=== PATIENT | male | born 1985 | race Caucasian/White ===

== ENCOUNTER 2025-04-20 16:37 | Emergency (ER) | payer SELFPAY ==
--- NOTE | ~2025-04-20 | XR_ITS ---
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 Findings: No acute fracture or malalignment. No significant degenerative changes. Soft tissues unremarkable. Impression: No acute fracture or malalignment. Reviewed, dictated and finalized at location P. CARVING MACHINE OPERATOR Impression: No acute fracture or malalignment.
[2025-04-20 16:46] VITALS: BP 113/75; PULSE 78; RESP 16; TEMP 36.4; O2SAT 100
--- NOTE | 2025-04-20 16:51 | ED_ITS ---
HPI - Extremity Injury (Lower) General Chief Complaint: Extremity Injury, Lower Stated Complaint: Left paez area injury Time Seen by Provider: 04/20/25 17:09 Source: patient and RN notes reviewed Mode of arrival: ambulatory Limitations: no limitations History of Present Illness HPI Narrative: 39-year-old male presents with concern of for injury to the left leg. Reports he ran into a [employer] work. Reports painful and slightly swollen area with an abrasion. He denies decreased strength, sensation, range of motion in the leg or distal extremity. He cleaned it after he was injured. MD complaint: leg injury Related Data Home Medications ?Medication ?Instructions ?Recorded ?Confirmed ?Last Taken ?Type buprenorphine subcut 04/20/25 Unknown His tory Allergies Allergy/AdvReac Type Severity Reaction Status Date / Time No Known Allergies Allergy Verified 04/20/25 16:59 Review of Systems Review of Systems: CONSTITUTIONAL: Denies malaise, chills, sweats, or fever. SKIN: Denies rash or itching, redness, warmth. Reports abrasion to the anterior left lower leg MUSCULOSKELETAL: Reports left leg pain, swelling NEUROLOGIC: Denies numbness, weakness All systems reviewed & are unremarkable except as noted in HPI and below PMFSH Comments At time of signature, agree with nursing past medical, surgical, social and f amily history. There is no relevant family history pertinent to the presenting complaint Exam Narrative: GENERAL: Well-appearing, well-nourished, and in no acute distress. HEAD: Normocephalic, atraumatic. EYES: PERRLA, conjunctivae clear NECK: Supple. CHEST: Speaks in full sentences. No respiratory distress. HEART: Regular rate and rhythm. Normal and equal peripheral pulses. EXTREMITIES: Left lower extremity has grossly normal strength and sensation, grossly normal range of motion. Mild anterior mid lower leg without erythema, warmth, ecchymosis. Normal sensation with sensitivity to light touch and pain. Anterior left lower leg tenderness. No open wounds, no skin tenting, no devitalized tissue or atrophy, no trophic changes, no obvious deformity, alignment normal, nearby joints and structures intact. Distal pulses palpable and equal bilaterally, skin warm, dry, pink. Capillary refill less than 3 seconds. SKIN: Warm, dry, no rash. NEURO: Alert and oriented x3. PSYCH: Normal mood and affect Course Course Emergency Course: Patient is aware of diagnosis, understands and agrees to treatment plan. Anticipatory guidance given. Patient agrees to follow-up as directed and is aware of reasons to seek care at the emergency department. Portions of this record may have been created with voice recognition software Level of Care: [facility] Visit MDM Differential Diagnosis Differential Diagnosis: I evaluated this patient in the [facility]. History is obtained from patient who is an independent historian and physical exam was performed.? Available medical records were reviewed. ? Exam findings and relevant testing show no acute concerns or changes; patient is non-toxic appearing and is in no distress. ? Patients injury and/or pain is consistent with musculoskeletal etiology. No signs of neurological or vascular compromise on exam. Compartments and tissues are soft without signs of compartment syndrome. Pain is felt appropriate for further evaluation on an outpatient basis. Differential diagnosis and treatment plan were discussed with the patient. Patient agrees with discussion and after shared medical decision making agrees with plan of care. All questions were answered to the patient's satisfaction. Patient is appropriate for outpatient treatment and follow-up. Imaging Data My impression: Images reviewed, interpreted by radiologist, agree, see report. 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 Findings: No acute fracture or malalignment. No significant degenerative changes. Soft tissues unremarkable. Impression: No acute fracture or malalignment. Discharge Plan Discharge Clinical Impression: Contusion of left leg Patient Disposition: Home Condition: Stable Instructions: Contusion in Adults (ED) Additional Instructions: Avoid activities that cause pain until the pain subsides. Ice to the area 20-30 minutes 4-6 times a day Elevate above heart Elastic wrap as directed for comfort for the next 5-7 days Tylenol for lesser pain Ibuprofen regularly for the next 2-3 days for the inflammation Follow up with your primary care provider if the condition is not improving within 1 week. If the condition worsens with numbness, tingling, decrease sensation with weakness seek treatment in the emergency room immediately. Patient Language: [place] Prescriptions: No Action buprenorphine [Brixadi] subcut Follow-up/Referrals: PHYSICIAN,CHIPPER [Primary Care Provider, Internal Medicine] Time of Disposition: 17:18
--- OUTSIDE RECORDS SUMMARY | 2025-04-20 19:01 | XMS_ITS | Patient Health Record ---
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 Name Role Phone Jose Gutierrez Primary Care Provider Allergies No Known Allergies Reason For Referral No Information Medications Medication SIG (Take, Route, Frequency, Duration) Notes Start Date End Date Status Symbicort 160-4.5 MCG/ACT Aerosol Inhalation; Duration: 30 Days Not-Taking/PRN hydrOXYzine Pamoate 50 MG Capsule Oral; Duration: 8 Days Not-Taking/PRN busPIRone HCl 10 MG Tablet Oral; Duration: 30 Days Not-Taking/PRN Modafinil Active QUEtiapine Fumarate 50 MG Tablet Oral; Duration: 30 Days Not-Taking/PRN Pregabalin 100 MG Capsule TAKE 1 CAPSULE BY MOUTH TWICE A DAY Oral; Duration: 30 Days Not-Taking/PRN CeleXA 20 MG Tablet take 1 tablet (20MG) by oral route every day Oral ([facility]) 04/11/2011 Not-Taking/PRN Albuterol Sulfate HFA 108 (90 Base) MCG/ACT Aerosol Solution Inhalation; Duration: 30 Days Not-Taking/PRN Vistaril Active Advair Diskus 250-50 MCG/ACT Aerosol Powder Breath Activated Inhalation; Duration: 30 Days Not-Taking/PRN Buprenorphine HCl-Naloxone HCl 8-2 MG Tablet Sublingual 2 TABLETS BY SUBLINGUAL ROUTE DAILY. Sublingual; Duration: 15 Days Active traZODone HCl 50 MG Tablet Oral; Duration: 30 Days Not-Taking/PRN buPROPion HCl ER (XL) 300 MG Tablet Extended Release 24 Hour Oral; Duration: 90 Days Not-Taking/PRN lamoTRIgine 25 MG Tablet TAKE 1 TABLET BY MOUTH TWICE A DAY Oral; Duration: 15 Days Not-Taking/PRN Social History Tobacco Use: Social History Observation Description Date Details (start date - stop date) Current Smoker NA - NA Social History Tobacco Use: Social Info Question Answer Notes Tobacco Use/Smoking Are you a current smoker How often do you smoke cigarettes? every day How many cigarettes a day do you smoke? 5 or less How soon after you wake up do you smoke your first cigarette? within 5 minutes Are you interested in quitting? Ready to quit Additional Findings: Tobacco User Light cigarett e smoker ((1-9 cigs/day) Problems Problem Type SNOMED Code ICD Code Onset Dates Problem Status W/U Status Risk Notes Problem Polysubstance abuse (456214681) Polysubstance abuse (F19.10) 07/28/19 Active confirmed Problem Alcohol abuse (89665557) Alcohol abuse (F10.10) 07/28/19 Active confirmed Problem COPD - Chronic obstructive pulmonary disease (71660143) Chronic obstructive pulmonary disease, unspecified COPD type (J44.9) 07/28/19 Active confirmed Problem History of intravenous drug abuse (situation) (3662142958212479 3) IV drug abuse (F19.10) 07/28/19 Active confirmed Plan Of Treatment No Information Insurance Providers Payer Name Payer Address Payer Phone Subscriber Number Group Number Insured Name Patient Relationship to Insured Coverage Start Date Coverage End Date [address] [id number] Delmer Roman Self - patient is the insured [facility] [address] [place] [address] [id number] Delmer Roman Self - patient is the insured Medical (General) History Medical History History ICD Code Substance use disorder: Meth 07/18/23 Asthma Surgical History Surgery Date(Month/Year) pins and plates in right leg 2002
--- OUTSIDE RECORDS SUMMARY | 2025-04-20 19:01 | XMS_ITS | Patient Health Record ---
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 Role Phone Nicolas Zaidi Primary Care Provider Lilia ZAIDI Unavailable Unavailable Allergies No Known Allergies Results Component Value Reference Range Notes 14 Panel Urine Drug Screen Order date: 12/15/2024 Reviewed date:12/15/2024 01:22:42 PM Interpretation: Performing Lab: Notes/Report: THC neg HUYEN neg MOP (OPI) neg AMP neg MET neg BAR neg BZO neg MDMA neg MTD neg OXY neg PCP neg BUP POS TCA neg FTY neg Reason For Referral No Information Medications Medication SIG (Take, Route, Frequency, Duration) Notes Start Date End Date Diagnosis (ICD Code) Status Varenicline Tartrate 1 MG Tablet 1 tablet after eating with a full glass of water (BEGIN AFTER COMPLETING 0.5 MG TAB) Orally Twice a day; Duration: 30 12/15/2024 Cigarette smoker (ICD_10 - F17.210) Active Atomoxetine HCl 40 MG Capsule 1 capsule in the morning Orally Once a day Active Brixadi 96 MG/0.27ML Solution Prefilled Syringe 96 mg Subcutaneous every 28 days; Duration: 28 days 12/15/2024 Opioid use disorder (ICD_10 - F11.99) Active Varenicline Tartrate 0.5 MG Tablet 1 tablet after eating with a full glass of water DAILY FOR THREE DAYS, TWICE DAILY FOR 4 DAYS, THEN BEGIN 1 MG TABS Orally directed; Duration: 7 days 12/15/2024 Cigarette smoker (ICD_10 - F17.210) Active Social History Tobacco Use: Social History Observation Description Date Details (start date - stop date) Current Smoker NA - NA Sex Observation Social History Observation Description Sex Observation Male Social History Primary Social History Social Info Question Answer Notes Living Arrangement Living Arrangement: Public Housing [facility] Is this a supportive environment? Yes Single Question Alcohol Screening How many times in the past year have you had (4 for women, or 5 for men) or more drinks in a day? 0 Employment Status Employment Status: Employed [employer] Illicit Substance Usage Illicit Substance Usage: Yes Substance Used: Cannabis, Heroin, Methamphetamine, Prescription Drugs Interested in quitting: Yes Alcohol Use Alcohol Use Frequency: Monthly or less Tobacco Use: Social Info Question Answer Notes Tobacco Control (Standard) Tobacco use: Current smoker How many cigarettes a day do you smoke? 5 or less Problems Problem Type SNOMED Code ICD Code Dates Problem Status W/U Status Risk Notes Problem Attention deficit hyperactivity disorder (369953714) ADHD (attention deficit hyperactivity disorder) (F90.9) Added On:12/15 Active confirmed Problem Cigarette smoker (33493819) Cigarette smoker (F17.210) Added On:12/15 Active confirmed Vital Signs Vital Sign Value Notes Appt Date Heart Rate 76 /min 12/15/2024 Temperature 98.2 degrees Fahrenheit 09/2024 Respiratory Rate 16 /min 12/15/2024 Oximetry 98 % 12/15/2024 Blood pressure diastolic 78 mm Hg 09/2024 Height 6ft0in in 12/15/2024 Blood pressure systolic 122 mm Hg 09/2024 Weight 179.2 lbs 12/15/2024 BMI 24.3 kg/m2 12/15/2024 Encounters Date Time Type Facility Location Provider Diagnosis 01:00 PM Office Visit, New Pt., Level 3 ([address]) [address] [place] [address] Nicolas Zaidi Opioid use disorder F11.99 ; Knee pain, right M25.561 ; Dorsalgia of lumbosacral region M54.50 ; Cigarette smoker F17.210 and ADHD (attention deficit hyperactivity disorder) F90.9 Assessments Encounter Date Diagnosis (ICD Code) Assessment Notes Treat ment Notes Section Notes 12/15/2024 Knee pain, right (ICD-10 - M25.561) 12/15/2024 Opioid use disorder (ICD-10 - F11.99) 12/15/2024 Dorsalgia of lumbosacral region (ICD-10 - M54.50) 12/15/2024 Cigarette smoker (ICD-10 - F17.210) 12/15/2024 ADHD (attention defi cit hyperactivity disorder) (ICD-10 - F90.9) Plan Of Treatment No Information Insurance Providers Payer Name Payer Address Payer Phone Subscriber Number Group Number Insured Name Patient Relationship to Insured Coverage Start Date Coverage End Date [address] [phone] [id number] Delmer Roman Self - patient is the insured 5 Medications Administered Medication Instructions Date of Administration Dosage Diagnosis (ICD Code) Notes Brixadi (Weekly) 12/15/2024 96 mg Medical (General) History Surgical History Surgery Date(Month/Year) External Fixator- R leg 2003 Hospitalization History Reason Date(Month/Year) MRSA 2011
== END 2025-04-20 17:20 | disposition home or self-care (01) ==
PROVIDERS: Emergency Provider Nurse Practitioner
DX: S80.12XA Contusion of left lower leg, initial encounter (principal); W22.8XXA Striking against or struck by other objects, initial encounter; Y99.0 Civilian activity done for income or pay; Z86.14 Personal history of Methicillin resistant Staphylococcus aureus infection
CPT/HCPCS: 73590; 99203; G0463